=== PATIENT | male | born 1950 | race American Indian/Alaskan Native ===

== ENCOUNTER 2017-03-16 09:33 | Day surgery (SDC) | payer OTHER ==
[2017-03-15 08:05] VITALS: BMI 30.4
[2017-03-16 10:33] VITALS: RESP 18
[2017-03-16] MEDS ORDERED: Lidocaine 2% Inj (20ml) ONE ×2 (11:32→11:33)
[2017-03-16] MEDS ORDERED: EPINEPHrine 1 mg/ml (1:1000) Inj ONE ×2 (11:32→12:08)
[2017-03-16] MEDS ORDERED: Lactated Ringer's 1,000 ML IV ONE (11:45)
[2017-03-16] MEDS ORDERED: Sodium Chloride 0.9% 0 ML IV ONE (12:08)
--- NOTE | 2017-03-16 13:32 | RAD ---
HISTORY: post op bronchoscopy with biopsy r/o pneumothorax COMPARISON: None available TECHNIQUE: Chest, one view. FINDINGS: LUNGS: Right apical pleural thickening or fluid. Patchy right upper lobe and right greater than left lower lobe airspace opacities worrisome for pneumonia. No definite pneumothorax. No large pleural effusion. Please note that chest x-ray has limited sensitivity for the detection of pulmonary masses. CARDIOVASCULAR: Borderline cardiomegaly. Ectatic aorta. Atherosclerotic calcifications of the aorta. OSSEOUS STRUCTURES: No acute osseous abnormality identified. VISUALIZED UPPER ABDOMEN: Unremarkable. OTHER FINDINGS: None. IMPRESSION: Right apical pleural thickening or fluid. Patchy right upper lobe and right greater than left lower lobe airspace opacities worrisome for pneumonia. No definite pneumothorax.
[2017-03-16 14:16] VITALS: PULSE 71
[2017-03-16 15:18] VITALS: BP 126/80; TEMP 98; O2SAT 100
--- NOTE | 2017-03-17 17:10 | RAD ---
PROCEDURE: Fluoroscopy up to 1 hr. HISTORY: LT LUNG INFILTRATE COMPARISON: None TECHNIQUE: Standard protocol for this study/examination. FINDINGS: Total fluoroscopic time (continuous mode) utilized during the procedure: 41.1 seconds. Submitted images from the current procedure: 4.0 IMPRESSION: Less than 1 hr fluoroscopic time utilized during performance of the procedure.
--- NOTE | 2017-03-19 07:10 | OP ---
PROCEDURE DATE: 03/16/2017 PROCEDURE: Bronchoscopy, biopsy. INDICATIONS: Left lower lobe mass. ANESTHESIA: Local, IV sedation. Bronchoscope passed through right nostril. Vocal cord inspected, shows some nodularity of the vocal cord. Trachea is normal. The alexei is a distorted anatomy. Transbronchial biopsy done of left lowe r lobe. Multiple biopsies taken. Brushing and washing was done. Senia Mejia MD cc: [id number] TT: 03/17/2017 08:01:20 mn
== END 2017-03-16 14:00 | disposition home or self-care (01) ==
LOC: C.SDS 09:33
PROVIDERS: ATTEND Internal Medicine Pulmonary Disease
DX: R91.8 Other nonspecific abnormal finding of lung field (principal)
CPT/HCPCS: 31624; 71010; 87101; 87116; 87206; 88104; 88305; J0171; J7120